=== PATIENT | female | born 1950 | race Caucasian/White ===

== ENCOUNTER 2021-08-16 18:55 | Emergency (ER) | payer OTHER, BC ==
--- NOTE | 2021-08-16 19:58 | RAD REPORT ---
EXAM DESCRIPTION: CT - CTHCSPWOC - 08/16/2021 7:47 pm CLINICAL HISTORY: Trauma, head and neck injury. trauma COMPARISON: No comparisons TECHNIQUE: Axial 5 mm thick images of the head were obtained. Axial 2 mm thick images of the cervical spine were obtained with sagittal and coronal reconstruction images generated and reviewed. All CT scans are performed using dose optimization technique as appropriate and may include automated exposure control or mA/KV adjustment according to patient size. FINDINGS: CT HEAD WITHOUT CONTRAST: No acute hemorrhage, hydrocephalus or extra-axial collection is identified.Mild generalized brain atr ophy is present with mild periventricular and deep white matter chronic microvascular ischemic change s.No areas of brain edema or midline shift. The paranasal sinuses and mastoids are clear.The calvarium is intact. CT CERVICAL SPINE WITHOUT CONTRAST: No fracture or subluxation.Mild spondylosis C5-6.No prevertebral soft tissues swelling is identified. IMPRESSION: No acute intracranial or cervical spine findings.
--- NOTE | 2021-08-16 20:16 | RAD REPORT ---
EXAM DESCRIPTION: RAD - Knee Left 3 View - 08/16/2021 8:06 pm CLINICAL HISTORY: trauma COMPARISON: No comparisons FINDINGS: No acute fracture or dislocation. No joint effusion.
[2021-08-16] MEDS ORDERED: ACETAMINOPHEN 500 MG TAB ONE (20:20)
[2021-08-16] MEDS ORDERED: TETANUS & DIPHTHERIA TOX,ADULT 0.5 ML VIAL ONE (20:21)
--- NOTE | 2021-08-16 22:25 | ER ---
Nurse's Notes [facility] Name: Lamar Green Age: 71 yrs Sex: Female : 1950 Arrival Date: 08/16/2021 Time: 19:04 Bed 13 Private MD: Diagnosis: Fall on same level from slipping, tripping and stumbling with subsequent striking against object;Laceration without foreign body of unspecified part of head Presentation: 08/16 19:00 Chief complaint: Patient states: Patient was walking her dog when she tripped on the g9 curb fell, hit her head on the concrete, -loc, + thinners-xarelto. Coronavirus screen: Vaccine status: Patient reports receiving the 2nd dose of the covid vaccine. Ebola Screen: Patient negative for fever greater than or equal to 101.5 degrees Fahrenheit, and additional compatible Ebola Virus Disease symptoms Patient denies exposure to infectious person. Patient denies travel to an Ebola-affected area in the 21 days before illness onset. Initial Sepsis Screen: Does the patient meet any 2 criteria? No. Patient's initial sepsis screen is negative. Does the patient have a suspected source of infection? No. Patient's initial sepsis screen is negative. Risk Assessment: Do you want to hurt yourself or someone else? Patient reports no desire to harm self or others. 19:00 Method Of Arrival: EMS: [facility] jg9 19:00 Acuity: SNOW 4 jg9 Triage Assessment: 19:00 General: Appears in no apparent distress. Behavior is calm. Pain: Complains of pain in jg9 head Pain currently is 5 out of 10 on a pain scale. Musculoskeletal: Reports PAIN TO LEFT HEAD AND LEFT LEG. Historical: - PMHx: 19:12 Cerebrovascular accident; PFO; jg9 - Immunization history:: Pneumococcal vaccine is up to date, Flu vaccine is up to date. - Social history:: Smoking status: Patient denies any tobacco usage or history of. Screenin:13 Abuse screen: Denies threats or abuse. Denies injuries from another. Nutritional jg9 screening: No deficits noted. Tuberculosis screening: No symptoms or risk factors identified. Fall Risk Assessment: 19:16 Reassessment: Patient with Curlex wrap to head. Laceration noted to center forehead at tk1 hairline. Dried blood noted to laceration site. No active bleeding noted. Ice pack applied. Superficial abrasion noted to left knee. General: Appears comfortable, well groomed, Behavior is calm, cooperative. Pain: Complains of pain in top of head Pain currently is 5 out of 10 on a pain scale. Quality of pain is described as aching, Pain began 30 min ago. Is continuous, lasting 30 minutes. Neuro: No deficits noted. Reports Denies blurred vision dizziness. Neuro: Level of Consciousness is awake, alert, obeys commands, Oriented to person, place, time, situation, Appropriate for age Senior Report Developer are equal bilaterally Moves all extremities. Full function Speech is normal, Facial symmetry appears normal, Pupils are PERRLA, Pupil Size: 3mm Intact. Cardiovascular: No deficits noted. Respiratory: No deficits noted. Injury Description: Laceration sustained to top of head is 0.5 to 2.5 cm long, a small amount of bleeding noted at this time. 19:40 Reassessment: Patient assisted OOB to bedside commode to void. Tolerated transfer well. tk1 19:47 Reassessment: Patient to radiology via stretcher with [facility] for CT scan. tk1 19:56 Reassessment: Patient returned from radiology. Tolerated well. tk1 20:00 Reassessment: Head laceration actively bleeding upon return. 1x1 guaze x4 applied and tk1 secured with Coban. Patient tolerated well. 20:15 Reassessment: Pressure dressing effective. Bleeding controlled. Reassessment:. tk1 21:36 Reassessment: ROCIO Corral in for suturing. tk1 22:03 Reassessment: Patient appears in no apparent distress at this time. Cleaned patient's tk1 hair of dried blood. Triple antibiotic applied to closed laceration. Patient tolerated well. 22:50 Reassessment: D/C per MD order. Discharge/Prescription instructions given to patient tk1 and daughter. Verbalized understanding. D/C via WC to daughter's POV. Vital Signs: 19:00 BP 167 / 80; Pulse 75; Resp 17 S; Pulse Ox 100% on R/A; Weight 68.04 kg (R); Height 5 jg9 ft. 6 in. (167.64 cm) (R); 19:21 BP 155 / 77 Supine; Pulse 75 LA; Resp 18 S; Pulse Ox 100% ; Pain 5/10; tk1 20:00 BP 166 / 89 LA Supine (auto/reg); Pulse 70 MON; Resp 18; Pulse Ox 00% ; Pain 4/10; tk1 21:00 BP 155 / 71 LA Supine (auto/reg); Pulse 75 MON; Resp 18 S; Pulse Ox 100% on R/A; tk1 22:03 BP 144 / 67 LA Supine (auto/reg); Pulse 73 MON; Resp 18 S; Pulse Ox 100% on R/A; Pain tk1 0/10; 19:00 Body Mass Index 24.21 (68.04 kg, 167.64 cm) [facility] ED Course: 19:04 Patient arrived in ED. [facility] 19:05 Talita Patrick, CHRISTY is Primary Nurse. [facility] 19:08 Homer Cormier MD is Attending Physician. [facility] 19:12 Triage completed. [facility] 19:13 Arm band placed on right wrist. [facility] 19:13 Patient has correct armband on for positive identification. Bed in low position. Call [facility] light in reach. Side rails up X 1. 19:28 Maintain EMS IV. Dressing intact. Site clean \T\ dry. Gauge \T\ site: 22g right AC. IV is tk 1 patent, Flushed saline lock with 5 ml normal saline. 19:47 CT Head C Spine In Process Unspecified. EDMS 20:06 Knee Left 3 View XRAY In Process Unspecified. EDMS 22:51 No provider procedures requiring assistance completed. IV discontinued, intact, tk1 bleeding controlled, No redness/swelling at site. Pressure dressing applied. Administered Medications: 20:25 Drug: Tetanus-Diphtheria Toxoid Adult 0.5 ml {Sightseeing Guide: [employer]. Exp: tk1 12/15/2022. Lot #: [id number]. } Route: IM; Site: right deltoid; 20:25 Drug: Tylenol 1000 mg Route: PO; tk1 22:35 Drug: KeFLEX (cephalexin) 500 mg Route: PO; tk1 Output: 19:51 Urine: 350ml (Voided); Total: 350ml. tk1 Outcome: 22:24 Discharge ordered by . [facility] 22:51 Discharged to home via wheelchair, with family. tk1 22:51 Condition: improved 22:51 Discharge instructions given to patient, family, Instructed on discharge instructions, follow up and referral plans. medication usage, wound care, Demonstrated understanding of instructions, follow-up care, medications, wound care, Prescriptions given X 1. 22:52 Patient left the ED. tk1 Signatures: Dispatcher [employer] Homer Sinha MD MD mh7 Talita Patrick RN RN jg9 Anastacia Arias tk1
--- NOTE | 2021-08-16 22:25 | EDPHYS ---
Physician Documentation [facility] Name: Lamar Green Age: 71 yrs Sex: Female : 1950 Arrival Date: 08/16/2021 Time: 19:04 Bed 13 Private MD: ED Physician Homer Cormier HPI: 08/16 19:25 This 71 yrs old Female presents to ER via EMS with complaints of Fall.. mh7 19:25 Details of fall: The patient fell from an upright position, while walking. Onset: The mh7 symptoms/episode began/occurred just prior to arrival, today. Associated injuries: The patient sustained injury to the head, laceration, of the top of head. 19:25 Severity of symptoms: At their worst the symptoms were mild, just prior to arrival, mh7 earlier today, in the emergency department the symptoms are unchanged. 19:25 Patient states that she was walking her dog when she tripped and fell onto concrete. mh7 She hit her head and her left knee on the ground. She denies any LOC. She denies any other injuries. She denies any symptoms prior to falling including headache, chest pain, abdominal pain, shortness of breath, nausea, vomiting, diarrhea, fever, cough, dizziness, numbness/tingling, or weakness.. Historical: - PMHx: 19:12 Cerebrovascular accident; PFO; jg9 - Immunization history:: Pneumococcal vaccine is up to date, Flu vaccine is up to date. - Social history:: Smoking status: Patient denies any tobacco usage or history of. ROS: 19:25 Constitutional: Negative for fever, chills, and weight loss, Eyes: Negative for injury, mh7 pain, redness, and discharge, ENT: Negative for injury, pain, and discharge, Neck: Negative for injury, pain, and swelling, Cardiovascular: Negative for chest pain, palpitations, and edema, Respiratory: Negative for shortness of breath, cough, wheezing, and pleuritic chest pain, Abdomen/GI: Negative for abdominal pain, nausea, vomiting, diarrhea, and constipation, Back: Negative for injury and pain, : Negative for injury, bleeding, discharge, and swelling, Neuro: Negative for headache, weakness, numbness, tingling, and seizure, Psych: Negative for depression, anxiety, suicide ideation, homicidal ideation, and hallucinations, Allergy/Immunology: Negative for hives, rash, and allergies, Endocrine: Negative for neck swelling, polydipsia, polyuria, polyphagia, and marked weight changes, Hematologic/Lymphatic: Negative for swollen nodes, abnormal bleeding, and unusual bruising. Exam: 19:25 Constitutional: This is a well developed, well nourished patient who is awake, alert, mh7 and in no acute distress. Eyes: Pupils equal round and reactive to light, extra-ocular motions intact. Lids and lashes normal. Conjunctiva and sclera are non-icteric and not injected. Cornea within normal limits. Periorbital areas with no swelling, redness, or edema. ENT: Nares patent. No nasal discharge, no septal abnormalities noted. Tympanic membranes are normal and external auditory canals are clear. Oropharynx with no redness, swelling, or masses, exudates, or evidence of obstruction, uvula midline. Mucous membranes moist. Neck: Trachea midline, no thyromegaly or masses palpated, and no cervical lymphadenopathy. Supple, full range of motion without nuchal rigidity, or vertebral point tenderness. No Meningismus. Chest/axilla: Normal chest wall appearance and motion. Nontender with no deformity. No lesions are appreciated. Cardiovascular: Regular rate and rhythm with a normal S1 and S2. No gallops, murmurs, or rubs. Normal PMI, no JVD. No pulse deficits. Respiratory: Lungs have equal breath sounds bilaterally, clear to auscultation and percussion. No rales, rhonchi or wheezes noted. No increased work of breathing, no retractions or nasal flaring. Abdomen/GI: Soft, non-tender, with normal bowel sounds. No distension or tympany. No guarding or rebound. No evidence of tenderness throughout. Back: No spinal tenderness. No costovertebral tenderness. Full range of motion. Neuro: Awake and alert, GCS 15, oriented to person, place, time, and situation. Cranial nerves II-XII grossly intact. Motor strength 5/5 in all extremities. Sensory grossly intact. Cerebellar exam normal. Normal gait. Psych: Awake, alert, with orientation to person, place and time. Behavior, mood, and affect are within normal limits. 19:25 Head/face: Noted is a laceration(s), that is superficial, that is linear, 10 cm(s), of mh7 the top of head. 19:25 Musculoskeletal/extremity: Extremities: noted in the Left knee: abrasion, ROM: intact mh7 in all extremities, Circulation is intact in all extremities. Sensation intact. Compartment Syndrome exam of affected extremity: is normal. no numbness, no tingling, no sensation deficit, no palor, no weak pulses, Joints: All joints appear normal with full range of motion. Weight bearing: able to fully bear weight, without difficulty, Tendon exam: specific tendon testing normal through active and passive range of motion 19:25 Skin: injury, abrasion(s), very small abrasion noted, of the Left knee, laceration(s), the wound is approximately 10 cm(s), with a depth of 0.5 cm(s), of the top of head, that can be described as no foreign body, irregular, with mild bleeding. Vital Signs: 19:00 BP 167 / 80; Pulse 75; Resp 17 S; Pulse Ox 100% on R/A; Weight 68.04 kg (R); Height 5 jg9 ft. 6 in. (167.64 cm) (R); 19:21 BP 155 / 77 Supine; Pulse 75 LA; Resp 18 S; Pulse Ox 100% ; Pain 5/10; tk1 20:00 BP 166 / 89 LA Supine (auto/reg); Pulse 70 MON; Resp 18; Pulse Ox 00% ; Pain 4/10; tk1 21:00 BP 155 / 71 LA Supine (auto/reg); Pulse 75 MON; Resp 18 S; Pulse Ox 100% on R/A; tk1 22:03 BP 144 / 67 LA Supine (auto/reg); Pulse 73 MON; Resp 18 S; Pulse Ox 100% on R/A; Pain tk1 0/10; 19:00 Body Mass Index 24.21 (68.04 kg, 167.64 cm) jg9 Laceration: 21:51 Wound Repair of 10cm ( 3.9in ) subcutaneous laceration to upper forehead. Linear cp shaped.. Distal neuro/vascular/tendon intact. Anesthesia: Wound infiltrated with 10 mls of 1% lidocaine w/ Epi. Wound prep: Moderate cleansing by me. Skin closed with 17 5-0 Prolene using interrupted sutures and sterile technique. Dressed with Bacitracin, 4x4's, Kerlix. Patient tolerated well. MDM: 22:21 Differential diagnosis: abrasion, closed head injury, contusion, fracture, laceration. [facility] Data reviewed: vital signs, nurses notes, EMS record, radiologic studies, CT scan. Data interpreted: Pulse oximetry: on room air is 100 %. Interpretation: normal. Counseling: I had a detailed discussion with the patient and/or guardian regarding: the historical points, exam findings, and any diagnostic results supporting the discharge/admit diagnosis, the presence of at least one elevated blood pressure reading (>120/80) during this emergency department visit, radiology results, the need for outpatient follow up, to return to the emergency department if symptoms worsen or persist or if there are any questions or concerns that arise at home. Response to treatment: the patient's symptoms have markedly improved after treatment. 22:24 Patient medically screened. [facility] 08/16 19:09 Order name: CT Head C Spine; Complete Time: 20:21 [facility] 08/16 19:28 Order name: Knee Left 3 View XRAY; Complete Time: 20:21 [facility] Administered Medications: 20:25 Drug: Tetanus-Diphtheria Toxoid Adult 0.5 ml {Aviation Engineer: [employer]. Exp: tk1 12/15/2022. Lot #: [id number]. } Route: IM; Site: right deltoid; 20:25 Drug: Tylenol 1000 mg Route: PO; tk1 22:35 Drug: KeFLEX (cephalexin) 500 mg Route: PO; tk1 Disposition: 23:52 Co-signature as Attending Physician, Homer Cormier MD. [facility] Disposition Summary: 08/16/21 22:24 Discharge Ordered Location: Home [facility] Problem: new [facility] Symptoms: have improved mh Condition: Stable 7 Diagnosis - Fall on same level from slipping, tripping and stumbling with subsequent striking 7 against object - Laceration without foreign body of unspecified part of head [facility] Followup: [facility] - With: Private Physician - When: 1 - 2 days - Reason: Wound Recheck, Worsening of condition, Recheck today's complaints, Continuance of care, Re-evaluation by your physician Discharge Instructions: - Discharge Summary Sheet [facility] - Laceration Care, Adult, [id number] [facility] - Fall Prevention in the Home, Adult, [id number] [facility] - Sutures, Tanna, or Adhesive Wound Closure, [id number] [facility] Forms: - Medication Reconciliation Form [facility] - Thank You Letter [facility] - Antibiotic Education [facility] - Prescription Opioid Use [facility] Prescriptions: - Cephalexin 500 mg Oral Capsule - take 1 capsule by ORAL route every 8 hours for 7 days; 21 capsule; Refills: 0, mh7 Product Selection Permitted Signatures: Dispatcher [employer] EDWesly Love PA PA cp Holmes, Maurice, MD MD 7 Talita Patrick RN RN jg9 Anastacia Arias 1
[2021-08-17 00:07] VITALS: O2SAT 100
[2021-08-17 00:17] VITALS: BP 144/67
== END 2021-08-16 22:52 | disposition home or self-care (01) ==
LOC: ER 18:55
PROC: 0JQ10ZZ Repair Face Subcutaneous Tissue and Fascia, Open Approach (ICD-10-PCS; principal; 2021-08-16)
DX: S01.81XA Laceration without foreign body of other part of head, initial encounter (principal); W01.198A Fall on same level from slipping, tripping and stumbling with subsequent striking against other object, initial encounter; Y93.K1 Activity, walking an animal; Z23 Encounter for immunization
CPT/HCPCS: 70450; 72125; 90471; 90714; 99284